=== PATIENT | female | born 1985 | race Caucasian/White ===

== ENCOUNTER 2017-08-13 13:55 | Emergency (ER) | payer OTHER ==
[2017-08-13] MEDS ORDERED: HYDROcodone/ACETAMIN 5-325 MG* 1 TAB PO ONE ×2 (15:48→19:30)
[2017-08-13] MEDS ORDERED: Ondansetron ODT TAB* 4 MG ONE ×2 (16:41→19:31)
[2017-08-13] MEDS ORDERED: Ondansetron ODT TAB* 4 MG PO ONE (16:46)
[2017-08-13] MEDS ORDERED: Lidocaine 2% 10 ML* VIAL INJ ONE (17:24)
[2017-08-13] MEDS ORDERED: Lidocaine 1% INJ* 10 MG/ML 30 ML SDV ONE (17:28)
[2017-08-13] MEDS ORDERED: Cyclobenzaprine TAB* 10 MG PO ONE (17:49)
[2017-08-13] MEDS ORDERED: Sulfamethox/Trimethoprim DS 800/160* TAB PO ONE (19:16)
[2017-08-13] MEDS ORDERED: Ondansetron ODT TAB* 4 MG SL ONE (19:16)
--- NOTE | 2017-08-13 19:28 | ED ---
Skin Complaint - HPI Summary HPI Summary: Patient presents to the ED with CC of right axillary tenderness, redness, warmth and swelling with a 10/10 pain. The area measures 3X4 and appears to be deep. She first noticed the abscess this morning upon wakening and has been unable to move the arm since that time. She has been unable to abduct the right shoulder. Denies history of axillary masses, abscess or hidrdenitis suppurativa. She denies diabetes or smoking. She denies known insect bite or other trauma to the area. She denies other pain or injuries. She states she is otherwise healthy. Denies fevers, sweats or chills. - History of Current Complaint Chief Complaint: EDGeneral Time Seen by Provider: 08/13/17 15:13 Stated Complaint: LUMPS UNDER RT ARM Hx Obtained From: Patient Onset/Duration: Started Hours Ago Skin Exposure Onset/Duration: Hours Ago Timing: Constant Onset Severity: Moderate Current Severity: Severe Pain Intensity: 10 Pain Scale Used: 0-10 Numeric Skin Location: Discrete - right axillary tenderness Character: Swelling, Pain, Redness, Raised, Painful Aggravating Symptom(s): Touch Alleviating Symptom(s): Nothing Associated Signs & Symptoms: Tenderness - Allergy/Home Medications Allergies/Adverse Reactions: Allergies Allergy/AdvReac Type Severity Reaction Status Date / Time No Known Allergies Allergy Verified 08/13/17 18:01 PMH/Surg Hx/FS Hx/Imm Hx Previously Healthy: Yes - Immunization History Hx Pertussis Vaccination: No Immunizations Up to Date: Unable to Obtain/Confirm Infectious Disease History: No Infectious Disease History: Denies: Traveled Outside the in Last 30 Days - Social History Occupation: Employed Full-time Lives: With Family Alcohol Use: None Hx Substance Use: No Substance Use Type: Reports: None Hx Tobacco Use: No Smoking Status (MU): Unknown if Ever Smoked Review of Systems Constitutional: Negative Negative: Fever, Chills, Fatigue Cardiovascular: Negative Respiratory: Negative Negative: Shortness Of Breath, Cough Genitourinary: Negative Positive: no symptoms reported, see HPI Positive: Other - right 3x4cm abscess - deep Neurological: Negative Psychological: Normal All Other Systems Reviewed And Are Negative: Yes Physical Exam Triage Information Reviewed: Yes Vital Signs On Initial Exam: Initial Vitals Temp Pulse Resp BP Pulse Ox 97.2 F 109 20 134/87 96 08/13/17 14:22 08/13/17 14:22 08/13/17 14:22 08/13/17 14:22 08/13/17 14:22 Vital Signs Reviewed: Yes Appearance: Positive: Well-Appearing, Well-Nourished Skin: Positive: Warm, Skin Color Reflects Adequate Perfusion Head/Face: Positive: Normal Head/Face Inspection Eyes: Positive: EOMI, TODD, Conjunctiva Clear Neck: Positive: Supple, No Lymphadenopathy Respiratory/Lung Sounds: Positive: Clear to Auscultation, Breath Sounds Present Cardiovascular: Positive: RRR, Pulses are Symmetrical in both Upper and Lower Extremities Musculoskeletal: Positive: Normal, Strength/ROM Intact Neurological: Positive: Sensory/Motor Intact, Alert, Oriented to Person Place, Time, Speech Normal Psychiatric: Positive: Normal - [place] Coma Scale Coma Scale Total: 15 Diagnostics - Vital Signs Vital Signs Temp Pulse Resp BP Pulse Ox 08/13/17 16:57 97.9 F 80 14 153/52 08/13/17 14:22 97.2 F 109 20 134/87 96 - Laboratory Lab Statement: Any lab studies that have been ordered have been reviewed, and results considered in the medical decision making process. Course/Dx - Course Course Of Treatment: Discussed treatment options with patient. She is hesitant , but agrees to I and D. The area is located in the axilla, measures 3x4cm and appears to be deep. The area prevents her from adducting her arm to her body. She arrives with her arm in abduction and tearful d/t pain. She notes to 10/10 pain and radiating around to the superior shoulder. Timeout obtained. Wound was cleansed with betadyne. Sterile precations used. 13ml lidocaine without epi used directly into and around the wound. Used 11 blade scalpel to puncture the most superior part of the wound. Copious amount of yellow serous fluid drained from the area. Approximately 4fl oz total. There appears to be no loculations. Attempted to pack the wound with iodoform dressing, but patient was unable to tolerate. After several attempts and discussions to try more pain management, lidocaine, etc. patient continues to refuse and is requesting to be discharge. She is given Bactrim x 10 days to cover MRSA. Wound culture obtained and sent. She agrees to follow up with myself in 2 days. Discussed with patient the high risk of recurrence d/t no drainage placed. She is aware of the risks and still refuses insertion of a drain or iodoform dressing. During her course of treatment, she was given 2 NORCO and 1 flexeril for relief of pain and muscle tension. She is prescribed NORCO for relief x 2 days. She is Ok with discharge and strict return precautions are given. - Differential Diagnoses - Skin Complaint Differential Diagnoses: Abscess, Cellulitis, Other - hidrenitis suppurativa, folliculitis, carbuncle, furuncle - Diagnoses Provider Diagnoses: Axillary abscess Discharge - Discharge Plan Condition: Stable Disposition: HOME Prescriptions: HYDROcodone/ACETAMIN 5-325 MG* [[place] 5-325 TAB*] 1 tab PO Q4H PRN #12 tab MDD 2 PRN Reason: Pain Sulfamethox/Trimethoprim DS* [Bactrim DS 800/160 TAB*] 1 tab PO BID #20 tab MDD 2 Patient Education Materials: Abscess (ED), Abscess Follow-up (ED) Referrals: No Primary Care Phys,NOPCP [Primary Care Provider] - Additional Instructions: Please follow up in the ED or UC in 2 days You will likely need this packed, but we will try to manage this was only antibiotics. Please take the Bactrim twice daily for 10 days Warm soaks to the area several times per day If you develop redness, streaks of red around the wound, swelling, abnormal drainage or you develop a fever - you need to come back to the ED right away.
[2017-08-13] MEDS ORDERED: Sulfamethox/Trimethoprim DS 800/160* TAB ONE (19:31)
[2017-08-13 19:47] VITALS: BP 129/87
== END 2017-08-13 19:47 | disposition home or self-care (01) ==
LOC: ED 13:55
DX: L02.411 Cutaneous abscess of right axilla (principal); A49.02 Methicillin resistant Staphylococcus aureus infection, unspecified site
CPT/HCPCS: 10060; 87070; 87077; 87186; 87205; 87640; 87641; 99282; A9270-GY; J2001

== ENCOUNTER → 2018-11-02 20:28 | Emergency (ER) | payer OTHER ==
[2018-11-02 20:36] VITALS: BP 137/88
--- NOTE | 2018-11-02 21:30 | ED ---
Upper Extremity Pain - HPI Summary HPI Summary: 33 year old female presents with right wrist pain today. States she lifted up her child and felt a pop in her wrist. She notices swelling on her palmar aspect of her right wrist. She has full range of motion of her wrist. She states that her thumb was bent back when the pop occurred. She denies any pain. No numbness or tingling. No previous fracture to the area. This never happened before. - History of Current Complaint Chief Complaint: EDExtremityUpper Stated Complaint: RT WRIST ISSUE Time Seen by Provider: 11/02/18 20:52 - Allergies/Home Medications Allergies/Adverse Reactions: Allergies Allergy/AdvReac Type Severity Reaction Status Date / Time No Known Allergies Allergy Verified 11/02/18 20:51 Home Medications: Home Medications Pantoprazole Sodium 20 mg PO DAILY 11/02/18 [History Confirmed 11/02/18] Vortioxetine (NF) [Trintellix (NF)] 10 mg PO DAILY 11/02/18 [History Confirmed 11/02/18] PMH/Surg Hx/FS Hx/Imm Hx Endocrine/Hematology History: Denies: Hx Anticoagulant Therapy Cardiovascular History: Denies: Hx Myocardial Infarction Infectious Disease History: No Infectious Disease History: Denies: Traveled Outside the [place] in Last 30 Days - Family History Known Family History: Positive: Non-Contributory - Social History Alcohol Use: None Hx Substance Use: No Substance Use Type: Reports: None Hx Tobacco Use: No Smoking Status (MU): Former Smoker Review of Systems Negative: Fever Negative: Chest Pain Negative: Shortness Of Breath Positive: Myalgia - right wrist pain All Other Systems Reviewed And Are Negative: Yes Physical Exam Triage Information Reviewed: Yes Vital Signs On Initial Exam: Initial Vitals Temp Pulse Resp BP Pulse Ox 97.8 F 109 20 137/88 99 11/02/18 20:31 11/02/18 20:31 11/02/18 20:31 11/02/18 20:31 11/02/18 20:31 Vital Signs Reviewed: Yes Appearance: Positive: Well-Appearing Skin: Positive: Warm, Dry Head/Face: Positive: Normal Head/Face Inspection Eyes: Positive: Normal, Conjunctiva Clear ENT: Positive: Pharynx normal Respiratory/Lung Sounds: Positive: Clear to Auscultation, Breath Sounds Present Cardiovascular: Positive: Normal, RRR Musculoskeletal: Positive: Strength/ROM Intact - right wrist, Other - swelling to palmar aspect that is compressible and nontender, good pulses, capillary refill<2 secs, Neurological: Positive: Normal Psychiatric: Positive: Normal Diagnostics - Vital Signs Vital Signs Temp Pulse Resp BP Pulse Ox 11/02/18 20:31 97.8 F 109 20 137/88 99 - Laboratory Lab Statement: Any lab studies that have been ordered have been reviewed, and results considered in the medical decision making process. - Radiology wrist Radiology Interpretation Completed By: ED Physician Summary of Radiographic Findings: no fx Course/Dx - Course Course Of Treatment: 33 year old female presents with right wrist pain today. States she lifted up her child and felt a pop in her wrist. She notices swelling on her palmar aspect of her right wrist. She has full range of motion of her wrist. She states that her thumb was bent back when the pop occurred. She denies any pain. No numbness or tingling. No previous fracture to the area. This never happened before. On exam has area of edema to right wrist. No erythema. Area is fluctuate most consistent with a cyst. Full range of motion. Neurovascular intact. X-ray read by me as normal. Gave thumb spica to apply to the area. will have follow-up with orthopedic. Likely is a ganglion cyst. Patient understands and agrees with plan. - Diagnoses Differential Diagnosis/HQI/PQRI: Positive: Contusion, Fracture (Closed), Strain Provider Diagnoses: Right wrist pain Discharge - Sign-Out/Discharge Documenting (check all that apply): Patient Departure - Discharge Plan Condition: Good Disposition: HOME Patient Education Materials: Ganglion Cysts (ED) Referrals: Tal Saldivar MD [Primary Care Provider] - Mj Seagl MD [Medical Doctor] - Additional Instructions: follow up with ortho use wrist splint as needed ice Take tyenlol or ibuprofen every 6 hours as needed for pain Return to ED if develop any new or worsening symptoms - Billing Disposition and Condition Condition: GOOD Disposition: Home
== END | disposition home or self-care (01) ==
LOC: ED 20:28
DX: M25.531 Pain in right wrist (principal); Z87.891 Personal history of nicotine dependence; X50.9XXA Other and unspecified overexertion or strenuous movements or postures, initial encounter; Y92.9 Unspecified place or not applicable
CPT/HCPCS: 99282